=== PATIENT | male | born 1940 | race Caucasian/White ===

== ENCOUNTER → 2020-10-25 | Outpatient (CLI) | payer MEDICARE ==
[2020-10-25 08:32] LABS: BASO # 0.06 (0.02-0.10); EOS # 0.53 (0.04-0.40); EOS % 10.7 % (0.0-4.0); HEMATOCRIT 47.3 % (42.0-52.0); HEMOGLOBIN 15.9 g/dL (13.5-18.0); LYMPH# 1.01 (1.50-4.00); MEAN CELL VOLUME 84 fl (78-100); MEAN CORPUSCULAR HEMOGLOBIN 28 pg (27-31); MEAN CORPUSCULAR HGB CONC 34 g/dL (33-37); MEAN PLATELET VOLUME 8.2 fl (7.4-10.4); MONO # 0.45 (0.20-0.80); NEU # 2.89 (1.40-6.50); PLATELET COUNT 207 K/mm3 (130-400); RED BLOOD COUNT 5.64 M/mm3 (4.20-5.60); RED CELL DISTRIBUTION WIDTH 13.4 % (11.5-14.5)
[2020-10-25 08:38] LABS: POTASSIUM 4.6 mmol/L (3.5-5.1)
[2020-10-25 08:40] LABS: CALCIUM 9.8 mg/dL (8.3-10.5)
[2020-10-25 08:41] LABS: TOTAL PROTEIN 6.6 g/dL (6.2-8.1)
[2020-10-25 08:43] LABS: TOTAL BILIRUBIN 0.9 mg/dL (0.2-1.2)
[2020-10-25 17:44] LABS: URINE APPEARANCE HAZY; URINE BILIRUBIN NEGATIVE (NEGATIVE); URINE BLOOD NEGATIVE (NEGATIVE); URINE COLOR YELLOW; URINE KETONE NEGATIVE (NEGATIVE); URINE LEUKOCYTE ESTERASE NEGATIVE (NEGATIVE); URINE NITRATE NEGATIVE (NEGATIVE); URINE PROTEIN(semi-quant) 1+ mg/dL (NEGATIVE); URINE UROBILINOGEN NORMAL (NORMAL)
[2020-10-25 17:45] LABS: URINE MUCUS PRESENT (NOT PRESENT)
== END ==
LOC: LAB 08:08
PROVIDERS: Family Medicine
DX: I10 Essential (primary) hypertension (principal); E78.00 Pure hypercholesterolemia, unspecified; E11.69 Type 2 diabetes mellitus with other specified complication; N40.0 Benign prostatic hyperplasia without lower urinary tract symptoms

== ENCOUNTER → 2021-05-16 | Outpatient (CLI) | payer MEDICARE ==
[2021-05-16 10:25] LABS: PH-URINE 5.5 (5.0 - 8.0); URINE APPEARANCE CLEAR; URINE BILIRUBIN NEGATIVE (NEGATIVE); URINE BLOOD NEGATIVE (NEGATIVE); URINE COLOR LT YELLOW; URINE GLUCOSE NEGATIVE (NEGATIVE); URINE KETONE NEGATIVE (NEGATIVE); URINE LEUKOCYTE ESTERASE NEGATIVE (NEGATIVE); URINE NITRATE NEGATIVE (NEGATIVE); URINE PROTEIN(semi-quant) TRACE (NEGATIVE); URINE UROBILINOGEN NORMAL (NORMAL); URINE WBC 0-1 /hpf (0-3)
[2021-05-16 10:51] LABS: ALBUMIN 4.2 g/dL (3.4-4.8); POTASSIUM 4.9 mmol/L (3.5-5.1)
[2021-05-16 10:52] LABS: CALCIUM 9.4 mg/dL (8.3-10.5)
[2021-05-16 10:53] LABS: TOTAL PROTEIN 6.7 g/dL (6.2-8.1)
[2021-05-16 10:55] LABS: TOTAL BILIRUBIN 0.7 mg/dL (0.2-1.2)
== END ==
LOC: LAB 08:57
PROVIDERS: Family Medicine
DX: E11.69 Type 2 diabetes mellitus with other specified complication (principal)

== ENCOUNTER → 2021-08-31 | Outpatient (CLI) | payer MEDICARE, OTHER ==
[2021-08-31 08:17] LABS: ALBUMIN 4.1 g/dL (3.4-4.8); POTASSIUM 4.3 mmol/L (3.5-5.1)
[2021-08-31 08:18] LABS: CALCIUM 9.3 mg/dL (8.3-10.5)
[2021-08-31 08:20] LABS: TOTAL PROTEIN 6.6 g/dL (6.2-8.1)
[2021-08-31 08:21] LABS: TOTAL BILIRUBIN 0.7 mg/dL (0.2-1.2)
== END ==
LOC: LAB 07:48
PROVIDERS: Family Medicine
DX: E11.69 Type 2 diabetes mellitus with other specified complication (principal)

== ENCOUNTER → 2022-03-28 | Outpatient (CLI) | payer MEDICARE, OTHER ==
[2022-03-28 15:52] LABS: URINE APPEARANCE CLEAR; URINE BILIRUBIN NEGATIVE (NEGATIVE); URINE BLOOD TRACE (NEGATIVE); URINE COLOR YELLOW; URINE KETONE NEGATIVE (NEGATIVE); URINE LEUKOCYTE ESTERASE NEGATIVE (NEGATIVE); URINE NITRATE NEGATIVE (NEGATIVE); URINE PROTEIN(semi-quant) 2+ (NEGATIVE); URINE UROBILINOGEN NORMAL (NORMAL); URINE WBC 0-1 /hpf (0-3)
[2022-03-28 15:53] LABS: URINE MUCUS PRESENT (NOT PRESENT)
== END ==
LOC: LAB 15:09
PROVIDERS: Family Medicine
DX: E78.00 Pure hypercholesterolemia, unspecified (principal); R41.0 Disorientation, unspecified; E11.69 Type 2 diabetes mellitus with other specified complication; I10 Essential (primary) hypertension; R80.9 Proteinuria, unspecified

== ENCOUNTER → 2022-04-04 | Outpatient (CLI) | payer MEDICARE, OTHER ==
[2022-04-04 10:15] LABS: BASO # 0.03 K/mm3 (0.02-0.10); EOS # 0.49 K/mm3 (0.04-0.40); EOS % 9.1 % (0.0-4.0); HEMATOCRIT 47.8 % (42.0-52.0); HEMOGLOBIN 15.9 g/dL (13.5-18.0); LYMPH# 1.03 K/mm3 (1.50-4.00); MEAN CELL VOLUME 85 fl (78-100); MEAN CORPUSCULAR HEMOGLOBIN 28 pg (27-31); MEAN CORPUSCULAR HGB CONC 33 g/dL (33-37); MEAN PLATELET VOLUME 8.3 fl (7.4-10.4); MONO # 0.37 K/mm3 (0.20-0.80); PLATELET COUNT 332 K/mm3 (130-400); RED BLOOD COUNT 5.61 M/mm3 (4.20-5.60); RED CELL DISTRIBUTION WIDTH 13.9 % (11.5-14.5); WHITE BLOOD COUNT 5.4 K/mm3 (4.8-10.8)
[2022-04-04 10:21] LABS: ALBUMIN 3.9 g/dL (3.4-4.8); POTASSIUM 4.3 mmol/L (3.5-5.1)
[2022-04-04 10:22] LABS: CALCIUM 9.3 mg/dL (8.3-10.5)
[2022-04-04 10:24] LABS: TOTAL PROTEIN 6.4 g/dL (6.2-8.1)
[2022-04-04 10:25] LABS: TOTAL BILIRUBIN 0.6 mg/dL (0.2-1.2)
== END ==
LOC: LAB 09:46
PROVIDERS: Family Medicine
DX: I10 Essential (primary) hypertension (principal); E78.00 Pure hypercholesterolemia, unspecified; E11.69 Type 2 diabetes mellitus with other specified complication

== ENCOUNTER 2022-05-24 19:59 | Emergency (ER) | payer MEDICARE, OTHER ==
[~2022-05-24] VITALS: Ht 172.7 cm; Wt 59.1 kg
[2022-05-24 20:25] LABS: BASO # 0.02 K/mm3 (0.02-0.10); EOS # 0.02 K/mm3 (0.04-0.40); EOS % 0.1 % (0.0-4.0); HEMOGLOBIN 15.4 g/dL (13.5-18.0); LYMPH# 0.76 K/mm3 (1.50-4.00); MEAN CELL VOLUME 84 fl (78-100); MEAN CORPUSCULAR HEMOGLOBIN 29 pg (27-31); MEAN CORPUSCULAR HGB CONC 34 g/dL (33-37); MEAN PLATELET VOLUME 8.4 fl (7.4-10.4); PLATELET COUNT 386 K/mm3 (130-400); RED BLOOD COUNT 5.37 M/mm3 (4.20-5.60); RED CELL DISTRIBUTION WIDTH 13.4 % (11.5-14.5)
[2022-05-24 20:31] LABS: ALBUMIN 3.5 g/dL (3.4-4.8)
[2022-05-24 20:32] VITALS: BP 114/86
[2022-05-24 20:32] LABS: POTASSIUM 4.1 mmol/L (3.5-5.1)
[2022-05-24 20:33] LABS: CALCIUM 9.2 mg/dL (8.3-10.5)
[2022-05-24 20:34] LABS: TOTAL PROTEIN 6.4 g/dL (6.2-8.1)
[2022-05-24 20:36] LABS: TOTAL BILIRUBIN 0.7 mg/dL (0.2-1.2)
[2022-05-24] MEDS ORDERED: CIPRO 500MG TA500 MG PO (20:50)
[2022-05-24] MEDS ORDERED: ZOFRAN ODT4 MG SL (20:51)
[2022-05-24] MEDS ORDERED: GLIPIZIDE ER10 M1 PO (20:52)
[2022-05-24] MEDS ORDERED: DONEPEZIL HCL5 M1 PO (20:52)
[2022-05-24] MEDS ORDERED: MEMANTINE HCL5 MG PO (20:53)
[2022-05-24] MEDS ORDERED: FLUTICASON0.05 MG/AC NS (20:54)
[2022-05-24] MEDS ORDERED: TRULICITY1.5 MG/0.5 SC (20:55)
[2022-05-24] MEDS ORDERED: ACETAMINOPHEN500 M5 PO (20:56)
[2022-05-24] MEDS ORDERED: HYDROPHOR454 GM TP (20:57)
[2022-05-24] MEDS ORDERED: ALL DAY ALLERGY10 M3 PO (20:57)
[2022-05-24] MEDS ORDERED: SYSTANE COMPLE1 EACH OP (20:58)
[2022-05-24] MEDS ORDERED: CALMOSEPTINE OI71 GM TP (20:59)
[2022-05-24] MEDS ORDERED: BENADRYL PO (21:00)
[2022-05-24] MEDS ORDERED: BACTRIM DS TAB1 EACH PO (22:22)
[2022-05-26] MEDS ORDERED: NORCO 325 MG-51 TA1 PO (16:55)
== END 2022-05-24 23:15 | disposition home or self-care (01) ==
LOC: ED 19:59
PROVIDERS: Family Medicine
DX: L03.221 Cellulitis of neck (principal); L02.11 Cutaneous abscess of neck; N39.0 Urinary tract infection, site not specified; E11.9 Type 2 diabetes mellitus without complications
CPT/HCPCS: J0696; J7030; Q9967

== ENCOUNTER → 2022-10-30 | Outpatient (CLI) | payer MEDICARE, OTHER ==
[~2022-10-30] MED LIST: ACETAMINOPHEN500 M5 PO; ALL DAY ALLERGY10 M3 PO; BACTRIM DS TAB1 EACH PO; BENADRYL PO; CALMOSEPTINE OI71 GM TP; CIPRO 500MG TA500 MG PO; DONEPEZIL HCL5 M1 PO; FLUTICASON0.05 MG/AC NS; GLIPIZIDE ER10 M1 PO; HYDROPHOR454 GM TP; MEMANTINE HCL5 MG PO; NORCO 325 MG-51 TA1 PO; SYSTANE COMPLE1 EACH OP; TRULICITY1.5 MG/0.5 SC; ZOFRAN ODT4 MG SL
[2022-10-30 18:51] LABS: URINE APPEARANCE CLEAR; URINE BILIRUBIN 1+ (NEGATIVE); URINE BLOOD TRACE (NEGATIVE); URINE COLOR AMBER; URINE LEUKOCYTE ESTERASE TRACE (NEGATIVE); URINE NITRATE NEGATIVE (NEGATIVE); URINE UROBILINOGEN NORMAL (NORMAL)
[2022-10-30 18:52] LABS: URINE GLUCOSE 50 mg/dL (NEGATIVE); URINE KETONE NEGATIVE (NEGATIVE); URINE PROTEIN(semi-quant) 3+ (NEGATIVE)
[2022-10-30 18:53] LABS: URINE MUCUS PRESENT (NOT PRESENT)
== END ==
LOC: LAB 18:10
PROVIDERS: Family Medicine
DX: N39.0 Urinary tract infection, site not specified (principal)

== ENCOUNTER → 2023-02-20 | Outpatient (CLI) | payer MEDICARE, OTHER ==
[2023-02-20 09:27] LABS: PH-URINE 5.5 (5.0 - 8.0); URINE APPEARANCE CLEAR (CLEAR); URINE COLOR YELLOW (YELLOW); URINE GLUCOSE 2+ (NEGATIVE); URINE PROTEIN(semi-quant) 2+ (NEGATIVE)
[2023-02-20 09:28] LABS: URINE BILIRUBIN NEGATIVE (NEGATIVE); URINE KETONE NEGATIVE (NEGATIVE)
[2023-02-20 09:29] LABS: URINE BLOOD NEGATIVE (NEGATIVE); URINE LEUKOCYTE ESTERASE NEGATIVE (NEGATIVE); URINE NITRATE NEGATIVE (NEGATIVE)
== END ==
LOC: LAB 08:53
PROVIDERS: Family Medicine
DX: N39.0 Urinary tract infection, site not specified (principal)